=== PATIENT | male | born 1990 | race Caucasian/White ===

== ENCOUNTER 2019-12-19 16:10 | Emergency (ER) | payer MEDICAID ==
[~2019-12-19] VITALS: Ht 172.7 cm; Wt 79.4 kg
[2019-12-19 16:18] VITALS: BP 110/72; Ht 172.7 cm; Wt 79.4 kg
== END 2019-12-19 17:21 | disposition home or self-care (01) ==
LOC: ED 16:10
DX: K04.7 Periapical abscess without sinus (principal); R00.2 Palpitations; R68.83 Chills (without fever)
CPT/HCPCS: J1885